=== PATIENT | female | born 1935 | race African-American/Black ===

== ENCOUNTER 2017-02-06 09:48 | Emergency (ER) | payer MEDICARE, MEDICAID ==
[~2017-02-06] VITALS: Ht 157.5 cm; Wt 73.0 kg
[~2017-02-06 09:48] MED LIST: ASPI-1159 PO; ATEN50TA PO; CLOP75TA33 PO; LISI10TA5 PO; MONT10TA24 PO
[2017-02-06 11:31] LABS: HEMATOCRIT. 37.6 % (36.0-48.0); HEMOGLOBIN. 12.6 g/dL (12.0-16.0); MEAN CORPUSCULAR HEMOGLOBIN 31.9 pg (28.0-32.0); MEAN CORPUSCULAR VOLUME 94.8 fL (81.0-99.0); MEAN PLATELET VOLUME 7.7 fl (7.4-10.4); PLATELET 167 x1000/uL (130-400); RED BLOOD CELL COUNT 3.97 mill/uL (4.2-5.4); RED CELL DISTRIBUTION WIDTH 13.8 % (11.6-14.6)
[2017-02-06 11:45] LABS: CARBON DIOXIDE 27 mEq/L (21-32); CHLORIDE 103 mEq/L (98-107); TROPONIN I 0.04 ng/mL (0.00-0.04)
[2017-02-06 12:07] LABS: PLATELET ESTIMATE NORMAL
[2017-02-06 13:00] VITALS: BP 162/98
== END 2017-02-06 13:08 | disposition home or self-care (01) ==
LOC: ER 10:17
DX: J44.0 Chronic obstructive pulmonary disease with (acute) lower respiratory infection (principal); J20.9 Acute bronchitis, unspecified; I10 Essential (primary) hypertension; E78.00 Pure hypercholesterolemia, unspecified; Z79.82 Long term (current) use of aspirin
CPT/HCPCS: 36415; 71010; 80053; 83880; 84484; 85025; 93005; 99285

== ENCOUNTER 2017-05-24 13:28 | Emergency (ER) | payer MEDICARE, MEDICAID ==
[~2017-05-24] VITALS: Ht 157.5 cm; Wt 70.0 kg
[2017-05-24 19:20] LABS: BASOPHILS % 1.3 % (0.0-2.0); EOSINOPHILS % 5.4 % (0.0-5.0); HEMATOCRIT. 40.9 % (36.0-48.0); HEMOGLOBIN. 13.7 g/dL (12.0-16.0); MEAN CORPUSCULAR VOLUME 95.5 fL (81.0-99.0); MEAN PLATELET VOLUME 6.9 fl (7.4-10.4); MONOCYTES % 11.3 % (2.0-8.0); PLATELET 191 x1000/uL (130-400); RED BLOOD CELL COUNT 4.28 mill/uL (4.2-5.4); RED CELL DISTRIBUTION WIDTH 14.4 % (11.6-14.6)
[2017-05-24 19:24] LABS: INR 1.1; PROTHROMBIN TIME 11.4 sec (9.4-11.6)
[2017-05-24 19:25] LABS: CHLORIDE 107 mEq/L (98-107)
[2017-05-24 19:32] LABS: CARBON DIOXIDE 28 mEq/L (21-32)
[2017-05-24 20:21] LABS: CLARITY URINE CLEAR (CLEAR); COLOR URINE YELLOW (YELLOW); KETONES URINE NEGATIVE (NEGATIVE); LEUKOCYTE ESTERASE URINE 2+ (NEGATIVE); NITRITE URINE NEGATIVE (NEGATIVE); OCCULT BLOOD URINE TRACE (NEGATIVE); PROTEIN URINE NEGATIVE (NEGATIVE); SPECIFIC GRAVITY URINE 1.015 (1.005-1.030); UROBILINOGEN URINE 0.2 E.U./dL (0.2-1.0)
[2017-05-24 20:40] VITALS: BP 178/92
[2017-05-24] MEDS ORDERED: AMOXICILLIN 500 MG CAPSULE PO ONE (20:45)
== END 2017-05-24 21:15 | disposition home or self-care (01) ==
LOC: ER 14:48
DX: N30.00 Acute cystitis without hematuria (principal); M16.11 Unilateral primary osteoarthritis, right hip; I10 Essential (primary) hypertension; Z79.82 Long term (current) use of aspirin; Z79.899 Other long term (current) drug therapy
CPT/HCPCS: 36415; 73502; 80053; 81001; 85025; 85610; 99285

== ENCOUNTER 2019-03-08 11:05 | Inpatient (IN) | payer MEDICARE, MEDICAID ==
[~2019-03-08] VITALS: Ht 157.5 cm; Wt 72.3 kg
[~2019-03-08 11:05] MED LIST changes: -ASPI-1159 PO; +ASPI-1393 PO; +LISI-604 MT
[2019-03-08] MEDS ORDERED: SODIUM CHLORIDE 0.9% 500 ML IV ONE (11:58)
[2019-03-08] MEDS ORDERED: DILTIAZEM HCL 5MG/ML 5ML VIAL IV ONE ×2 (12:00→16:00)
[2019-03-08 12:21] LABS: BASOPHILS % 0.9 % (0.0-2.0); EOSINOPHILS % 2.7 % (0.0-5.0); HEMATOCRIT. 40.2 % (36.0-48.0); HEMOGLOBIN. 13.7 g/dL (12.0-16.0); LYMPHOCYTES % 21.4 % (20.0-50.0); MEAN CORPUSCULAR VOLUME 97.2 fL (81.0-99.0); MEAN PLATELET VOLUME 6.7 fl (7.4-10.4); MONOCYTES % 11.4 % (2.0-8.0); NEUTROPHILS % 63.6 % (40.0-76.0); PLATELET 231 x1000/uL (130-400); RED BLOOD CELL COUNT 4.14 mill/uL (4.2-5.4); RED CELL DISTRIBUTION WIDTH 14.5 % (11.6-14.6)
[2019-03-08 12:27] LABS: CHLORIDE 104 mEq/L (98-107)
[2019-03-08 12:29] LABS: PROTHROMBIN TIME 10.7 sec (9.6-11.0)
[2019-03-08 13:17] LABS: CLARITY URINE CLEAR (CLEAR); COLOR URINE YELLOW (YELLOW); KETONES URINE NEGATIVE (NEGATIVE); LEUKOCYTE ESTERASE URINE TRACE (NEGATIVE); NITRITE URINE NEGATIVE (NEGATIVE); OCCULT BLOOD URINE NEGATIVE (NEGATIVE); PH URINE 6.5 (4.5-8.0); PROTEIN URINE NEGATIVE (NEGATIVE); SPECIFIC GRAVITY URINE 1.007 (1.005-1.030); UROBILINOGEN URINE 0.2 E.U./dL (0.2-1.0)
[2019-03-08] MEDS ORDERED: DILTIAZEM HCL 125 MG in DEXT 5% WATER 100 ML IV ONE (16:00)
[2019-03-08] MEDS ORDERED: DILTIAZEM HCL 125 MG in DEXT 5% WATER 100 ML IV NR (17:00)
[2019-03-08] MEDS ORDERED: IPRATROPIUM/ALBUTEROL 0.5-3(2.5)MG/3ML NEB HHN PRN (18:30)
[2019-03-08] MEDS ORDERED: ONDANSETRON HCL 4MG/2ML INJ IV PRN (18:30)
[2019-03-08 20:12] LABS: T4 FREE 1.06 ng/dL (0.76-1.46)
[2019-03-08 20:25] VITALS: BP 134/97
[2019-03-08 20:30] VITALS: BP 134/97
[2019-03-08 21:25] VITALS: BP 154/93
[2019-03-08] MEDS: ENOXAPARIN 60MG/0.6ML SYR SUBCUT SCH (21:47)
[2019-03-08] MEDS: FLUTICASONE PROPIONATE 50MCG/SPRAY BOTTLE BOTHNSTRLS SCH (22:22)
[2019-03-08 22:25] VITALS: BP 157/94
[2019-03-09] VITALS (12 sets, daily range): BP systolic 136–165; BP diastolic 73–93
[2019-03-09 00:07] LABS: CREATINE KINASE MB FRACTION 1.3 ng/mL (0.5-3.6)
[2019-03-09] MEDS: DILTIAZEM HCL 30MG TABLET PO SCH ×4 (00:50→17:38)
[2019-03-09 06:18] LABS: CLARITY URINE CLEAR (CLEAR); COLOR URINE YELLOW (YELLOW); KETONES URINE NEGATIVE (NEGATIVE); LEUKOCYTE ESTERASE URINE TRACE (NEGATIVE); NITRITE URINE NEGATIVE (NEGATIVE); OCCULT BLOOD URINE NEGATIVE (NEGATIVE); PROTEIN URINE NEGATIVE (NEGATIVE); SPECIFIC GRAVITY URINE 1.008 (1.005-1.030); UROBILINOGEN URINE 0.2 E.U./dL (0.2-1.0)
[2019-03-09 06:32] LABS: *AMPHETAMINES SCREEN URINE NEGATIVE (NEGATIVE); *BARBITURATES SCREEN URINE NEGATIVE (NEGATIVE); *BENZODIAZEPINES SCREEN URINE NEGATIVE (NEGATIVE); *COCAINE SCREEN URINE NEGATIVE (NEGATIVE)
[2019-03-09 06:33] LABS: CANNABINOID URINE SCREEN NEGATIVE (NEGATIVE); METHADONE URINE SCREEN NEGATIVE (NEGATIVE); OPIATES URINE SCREEN NEGATIVE (NEGATIVE); PHENCYCLIDINE URINE SCREEN NEGATIVE (NEGATIVE)
[2019-03-09 07:26] LABS: BASOPHILS % 1.1 % (0.0-2.0); EOSINOPHILS % 5.2 % (0.0-5.0); HEMATOCRIT. 36.6 % (36.0-48.0); HEMOGLOBIN. 12.7 g/dL (12.0-16.0); LYMPHOCYTES % 28.3 % (20.0-50.0); MEAN CORPUSCULAR HEMOGLOBIN 33.4 pg (28.0-32.0); MEAN CORPUSCULAR VOLUME 96.6 fL (81.0-99.0); MONOCYTES % 13.6 % (2.0-8.0); NEUTROPHILS % 51.8 % (40.0-76.0); PLATELET 210 x1000/uL (130-400); RED BLOOD CELL COUNT 3.79 mill/uL (4.2-5.4); RED CELL DISTRIBUTION WIDTH 14.6 % (11.6-14.6)
[2019-03-09 07:36] LABS: CHLORIDE 104 mEq/L (98-107)
[2019-03-09 07:48] LABS: CREATINE KINASE MB FRACTION < 1.0 ng/mL (0.5-3.6)
[2019-03-09] MEDS: DOCUSATE SODIUM 250MG CAPSULE PO SCH (08:49)
[2019-03-09] MEDS: FAMOTIDINE 20MG TABLET PO SCH (08:49)
[2019-03-09] MEDS: ENOXAPARIN 60MG/0.6ML SYR SUBCUT SCH ×2 (08:50→21:23)
[2019-03-09] MEDS: FLUTICASONE PROPIONATE 50MCG/SPRAY BOTTLE BOTHNSTRLS SCH ×2 (08:52→21:23)
[2019-03-09 09:27] LABS: BG BASE EXCESS -6.1 mmol/L (-2.0-2.0); BG CARBOXYHEMOGLOBIN 0.3 % (0.5-1.5); BG FRACTION INSPIRED OXYGEN 21; BG HCO3 ACT 18.5 mmol/L (22.0-26.0); BG METHEMOGLOBIN 0.2 % (0.0-1.5); BG OXYHEMOGLOBIN 95.5 % (94.0-97.0); BG PCO2 33.2 mmHg (35.0-45.0); BG PH 7.363 (7.350-7.450); BG PO2 87.1 mmHg (75.0-100.0); BG SAMPLE SITE RIGHT RADIAL; BG TOTAL HEMOGLOBIN 10.4 g/dL (12.0-18.0); BG VENT MODE ROOM AIR
[2019-03-09] MEDS ORDERED: GUAIFENESIN 200MG/10ML SUGAR FREE UDC PO PRN (10:00)
[2019-03-09] MEDS ORDERED: BENZONATATE 100MG CAPSULE PO PRN (10:00)
[2019-03-09] MEDS ORDERED: HYDRALAZINE HCL 25MG TABLET PO NR (16:00)
[2019-03-09] MEDS: MULTAQ 400 MG PO SCH (21:24)
[2019-03-10] VITALS (19 sets, daily range): BP systolic 119–171; BP diastolic 69–110
[2019-03-10 00:31] LABS: *COCAINE SCREEN URINE NEGATIVE (NEGATIVE); CANNABINOID URINE SCREEN NEGATIVE (NEGATIVE); METHADONE URINE SCREEN NEGATIVE (NEGATIVE); OPIATES URINE SCREEN NEGATIVE (NEGATIVE); PHENCYCLIDINE URINE SCREEN NEGATIVE (NEGATIVE)
[2019-03-10 00:32] LABS: *AMPHETAMINES SCREEN URINE NEGATIVE (NEGATIVE); *BARBITURATES SCREEN URINE NEGATIVE (NEGATIVE); *BENZODIAZEPINES SCREEN URINE NEGATIVE (NEGATIVE)
[2019-03-10] MEDS: DILTIAZEM HCL 30MG TABLET PO SCH ×5 (00:39→23:01)
[2019-03-10] MEDS: ACETAMINOPHEN 325MG TABLET PO PRN ×2 (02:53→09:13)
[2019-03-10] MEDS: DOCUSATE SODIUM 250MG CAPSULE PO SCH (09:06)
[2019-03-10] MEDS: FLUTICASONE PROPIONATE 50MCG/SPRAY BOTTLE BOTHNSTRLS SCH ×2 (09:06→21:55)
[2019-03-10] MEDS: MULTAQ 400 MG PO SCH ×2 (09:07→17:56)
[2019-03-10] MEDS: FAMOTIDINE 20MG TABLET PO SCH (09:07)
[2019-03-10] MEDS: APIXABAN 2.5 MG TABLET PO SCH ×2 (09:07→21:55)
[2019-03-10 10:13] LABS: BASOPHILS % 0.6 % (0.0-2.0); EOSINOPHILS % 0.8 % (0.0-5.0); HEMATOCRIT. 38.8 % (36.0-48.0); HEMOGLOBIN. 13.1 g/dL (12.0-16.0); LYMPHOCYTES % 14.6 % (20.0-50.0); MEAN CORPUSCULAR HEMOGLOBIN 32.8 pg (28.0-32.0); MEAN CORPUSCULAR VOLUME 97.4 fL (81.0-99.0); MONOCYTES % 13.1 % (2.0-8.0); NEUTROPHILS % 70.9 % (40.0-76.0); PLATELET 231 x1000/uL (130-400); RED BLOOD CELL COUNT 3.98 mill/uL (4.2-5.4); RED CELL DISTRIBUTION WIDTH 14.2 % (11.6-14.6)
[2019-03-10 10:28] LABS: CHLORIDE 100 mEq/L (98-107)
[2019-03-10] MEDS: HYDROCODONE/ACETAMINOPHEN 5/325MG TABLET PO PRN ×2 (13:13→20:05)
[2019-03-10] MEDS ORDERED: POTASSIUM CHLORIDE 20MEQ TABLET SR PO NR (16:15)
[2019-03-10] MEDS ORDERED: CLONIDINE 0.1MG TABLET PO PRN (20:45)
[2019-03-11] VITALS (12 sets, daily range): BP systolic 122–167; BP diastolic 65–89
[2019-03-11] MEDS: DILTIAZEM HCL 30MG TABLET PO SCH ×3 (06:08→19:02)
[2019-03-11 06:18] LABS: HEMATOCRIT. 36.8 % (36.0-48.0); HEMOGLOBIN. 12.5 g/dL (12.0-16.0); MEAN CORPUSCULAR VOLUME 96.9 fL (81.0-99.0); MEAN PLATELET VOLUME 7.5 fl (7.4-10.4); PLATELET 228 x1000/uL (130-400); RED CELL DISTRIBUTION WIDTH 13.7 % (11.6-14.6)
[2019-03-11 06:58] LABS: CHLORIDE 98 mEq/L (98-107)
[2019-03-11] MEDS: DOCUSATE SODIUM 250MG CAPSULE PO SCH (08:31)
[2019-03-11] MEDS: MULTAQ 400 MG PO SCH ×2 (08:31→17:34)
[2019-03-11] MEDS: FAMOTIDINE 20MG TABLET PO SCH (08:31)
[2019-03-11] MEDS: FLUTICASONE PROPIONATE 50MCG/SPRAY BOTTLE BOTHNSTRLS SCH ×2 (08:31→20:56)
[2019-03-11] MEDS: MORPHINE SULFATE 2 MG/ML CPJ (NOT FOR IM USE) IV PRN ×2 (08:48→16:27)
[2019-03-11] MEDS: APIXABAN 2.5 MG TABLET PO SCH ×2 (09:00→20:56)
[2019-03-11 09:47] LABS: PLATELET ESTIMATE NORMAL
[2019-03-11] MEDS: CEFTRIAXONE 1,000 MG in DEXTROSE 5% WATER 50 ML IV SCH (10:14)
[2019-03-11] MEDS ORDERED: VANCOMYCIN 1500MG in DEXTROSE 5% WATER 250ML IV SCH (11:00)
[2019-03-12] VITALS (10 sets, daily range): BP systolic 118–150; BP diastolic 59–79
[2019-03-12] MEDS: DILTIAZEM HCL 30MG TABLET PO SCH ×4 (00:29→18:04)
[2019-03-12] MEDS: MORPHINE SULFATE 2 MG/ML CPJ (NOT FOR IM USE) IV PRN (05:17)
[2019-03-12] MEDS: MULTAQ 400 MG PO SCH ×2 (07:20→18:04)
[2019-03-12] MEDS ORDERED: HYDROMORPHONE HCL/PF 2MG/ML CPJ IV PRN (09:15)
[2019-03-12] MEDS ORDERED: HYDROMORPHONE HCL/PF 2MG/ML CPJ IV SCH (09:15)
[2019-03-12] MEDS: LIDOCAINE 5% PATCH TOP SCH (10:00)
[2019-03-12] MEDS: VANCOMYCIN 1 G PREMIX 200 ML IV SCH (10:03)
[2019-03-12] MEDS: CEFTRIAXONE 1,000 MG in DEXTROSE 5% WATER 50 ML IV SCH (10:03)
[2019-03-12] MEDS: APIXABAN 2.5 MG TABLET PO SCH ×2 (10:03→21:43)
[2019-03-12] MEDS: DOCUSATE SODIUM 250MG CAPSULE PO SCH (10:03)
[2019-03-12] MEDS: FAMOTIDINE 20MG TABLET PO SCH (10:03)
[2019-03-12 10:33] LABS: BASOPHILS % 0.2 % (0.0-2.0); EOSINOPHILS % 0.6 % (0.0-5.0); HEMATOCRIT. 35.2 % (36.0-48.0); HEMOGLOBIN. 12.1 g/dL (12.0-16.0); LYMPHOCYTES % 7.7 % (20.0-50.0); MEAN CORPUSCULAR HEMOGLOBIN 33.4 pg (28.0-32.0); MEAN CORPUSCULAR VOLUME 97.4 fL (81.0-99.0); MEAN PLATELET VOLUME 7.4 fl (7.4-10.4); MONOCYTES % 10.9 % (2.0-8.0); NEUTROPHILS % 80.6 % (40.0-76.0); PLATELET 172 x1000/uL (130-400); RED BLOOD CELL COUNT 3.62 mill/uL (4.2-5.4); RED CELL DISTRIBUTION WIDTH 14.3 % (11.6-14.6)
[2019-03-12 10:43] LABS: CHLORIDE 96 mEq/L (98-107)
[2019-03-12] MEDS: HYDROCODONE/ACETAMINOPHEN 5/325MG TABLET PO PRN (21:54)
[2019-03-13] VITALS (10 sets, daily range): BP systolic 99–132; BP diastolic 55–70
[2019-03-13] MEDS: DILTIAZEM HCL 30MG TABLET PO SCH ×4 (00:33→18:59)
[2019-03-13] MEDS ORDERED: ETHYL CHLORIDE CAN TOP NR (07:00)
[2019-03-13] MEDS: MULTAQ 400 MG PO SCH ×2 (07:20→17:55)
[2019-03-13 08:57] LABS: HEMATOCRIT. 34.6 % (36.0-48.0); HEMOGLOBIN. 11.9 g/dL (12.0-16.0); MEAN CORPUSCULAR HEMOGLOBIN 33.3 pg (28.0-32.0); MEAN CORPUSCULAR VOLUME 96.8 fL (81.0-99.0); MEAN PLATELET VOLUME 7.8 fl (7.4-10.4); PLATELET 183 x1000/uL (130-400); RED BLOOD CELL COUNT 3.58 mill/uL (4.2-5.4); RED CELL DISTRIBUTION WIDTH 13.8 % (11.6-14.6)
[2019-03-13] MEDS: LIDOCAINE 5% PATCH TOP SCH (09:00)
[2019-03-13] MEDS ORDERED: LIDOCAINE HCL/EPINEPHRINE 1%-EPI 1:100,000 20 ML VIAL INFIL NR (09:00)
[2019-03-13 09:03] LABS: CHLORIDE 96 mEq/L (98-107)
[2019-03-13] MEDS ORDERED: TRAMADOL HCL/ACETAMINOPHEN 37.5/325MG TABLET PO SCH (09:15)
[2019-03-13] MEDS: DOCUSATE SODIUM 250MG CAPSULE PO SCH (09:32)
[2019-03-13] MEDS: FAMOTIDINE 20MG TABLET PO SCH (09:32)
[2019-03-13] MEDS: APIXABAN 2.5 MG TABLET PO SCH ×2 (09:32→21:40)
[2019-03-13] MEDS: CEFTRIAXONE 1,000 MG in DEXTROSE 5% WATER 50 ML IV SCH (09:36)
[2019-03-13] MEDS: VANCOMYCIN 1 G PREMIX 200 ML IV SCH (09:36)
[2019-03-13 11:32] LABS: PLATELET ESTIMATE NORMAL
[2019-03-13] MEDS ORDERED: SODIUM BICARBONATE 4% (2.4MEQ) 5ML VIAL IV ONE (13:14)
[2019-03-13] MEDS ORDERED: LIDOCAINE HCL 1% 20ML VIAL (Pyxis) INJ ONE (13:14)
[2019-03-13] MEDS: HYDROCODONE/ACETAMINOPHEN 5/325MG TABLET PO PRN ×2 (15:06→21:43)
[2019-03-13] MEDS ORDERED: ASPI-1393 PO (15:27)
[2019-03-13] MEDS ORDERED: ATEN50TA PO (15:27)
[2019-03-13] MEDS ORDERED: NIFE60TA64 PO (15:27)
[2019-03-13] MEDS ORDERED: MONT10TA21 PO (15:27)
[2019-03-13] MEDS ORDERED: FLUT9.9S BOTHNSTRLS (15:27)
[2019-03-13] MEDS ORDERED: CLOP75TA4 PO (15:27)
[2019-03-13] MEDS ORDERED: LISI-604 PO (15:32)
[2019-03-13] MEDS: TRAMADOL HCL/ACETAMINOPHEN 37.5/325MG TABLET PO SCH (18:59)
[2019-03-14] VITALS (10 sets, daily range): BP systolic 94–125; BP diastolic 56–84
[2019-03-14] MEDS: DILTIAZEM HCL 30MG TABLET PO SCH ×3 (00:05→12:00)
[2019-03-14] MEDS: LIDOCAINE 5% PATCH TOP SCH (08:14)
[2019-03-14] MEDS: MULTAQ 400 MG PO SCH (08:18)
[2019-03-14] MEDS: DOCUSATE SODIUM 250MG CAPSULE PO SCH (08:18)
[2019-03-14] MEDS: APIXABAN 2.5 MG TABLET PO SCH (08:18)
[2019-03-14] MEDS: TRAMADOL HCL/ACETAMINOPHEN 37.5/325MG TABLET PO SCH (08:18)
[2019-03-14] MEDS: FAMOTIDINE 20MG TABLET PO SCH (08:18)
[2019-03-14] MEDS ORDERED: APIX2.5T MT (09:07)
[2019-03-14] MEDS ORDERED: DOCU250C69 MT (09:07)
[2019-03-14] MEDS ORDERED: DILT30TA38 MT (09:07)
[2019-03-14] MEDS ORDERED: DRON400T MT (09:07)
[2019-03-14] MEDS ORDERED: TRAM-529 MT (09:07)
[2019-03-14] MEDS ORDERED: LIDO700A30 TP (09:07)
[2019-03-14] MEDS: VANCOMYCIN 1 G PREMIX 200 ML IV SCH (09:23)
[2019-03-14] MEDS ORDERED: CEFTRIAXONE 1 G PREMIX 50 ML IV SCH (10:00)
[2019-03-14 11:36] LABS: BASOPHILS % 0.2 % (0.0-2.0); EOSINOPHILS % 2.6 % (0.0-5.0); HEMATOCRIT. 31.9 % (36.0-48.0); HEMOGLOBIN. 10.9 g/dL (12.0-16.0); LYMPHOCYTES % 10.5 % (20.0-50.0); MEAN CORPUSCULAR HEMOGLOBIN 33.1 pg (28.0-32.0); MEAN CORPUSCULAR VOLUME 96.9 fL (81.0-99.0); MEAN PLATELET VOLUME 8.1 fl (7.4-10.4); MONOCYTES % 13.4 % (2.0-8.0); NEUTROPHILS % 73.3 % (40.0-76.0); PLATELET 218 x1000/uL (130-400); RED CELL DISTRIBUTION WIDTH 13.9 % (11.6-14.6)
[2019-03-14 11:39] LABS: CHLORIDE 93 mEq/L (98-107)
[2019-03-14] MEDS ORDERED: DEMECLOCYCLINE HCL 300MG TABLET PO SCH (17:00)
== END 2019-03-14 17:34 | disposition home health service (06) | DRG 554 ==
LOC: ER 11:05 → EDBEDREQ 14:30 → EDBEDREQSVC 14:30 → ENRESERV 19:22 → 3WST 20:15
PROVIDERS: ADMIT Internal Medicine Geriatric Medicine; ATTEND Internal Medicine Geriatric Medicine
PROC: 0S9D3ZZ Drainage of Left Knee Joint, Percutaneous Approach (ICD-10-PCS; principal; 2019-03-11)
PROC: 0S9D3ZZ Drainage of Left Knee Joint, Percutaneous Approach (ICD-10-PCS; 2019-03-13)
DX: M25.062 Hemarthrosis, left knee (principal); E22.2 Syndrome of inappropriate secretion of antidiuretic hormone; N39.0 Urinary tract infection, site not specified; M17.12 Unilateral primary osteoarthritis, left knee; I48.0 Paroxysmal atrial fibrillation; J40 Bronchitis, not specified as acute or chronic; S80.02XA Contusion of left knee, initial encounter; R09.82 Postnasal drip; J30.9 Allergic rhinitis, unspecified; I11.0 Hypertensive heart disease with heart failure; Z96.652 Presence of left artificial knee joint; K57.90 Diverticulosis of intestine, part unspecified, without perforation or abscess without bleeding; M48.061 Spinal stenosis, lumbar region without neurogenic claudication; Z60.2 Problems related to living alone; I49.9 Cardiac arrhythmia, unspecified; R00.1 Bradycardia, unspecified; M25.462 Effusion, left knee; Z96.1 Presence of intraocular lens; Z79.01 Long term (current) use of anticoagulants; Z98.49 Cataract extraction status, unspecified eye; Z79.02 Long term (current) use of antithrombotics/antiplatelets; Z79.899 Other long term (current) drug therapy; Z86.73 Personal history of transient ischemic attack (TIA), and cerebral infarction without residual deficits; Z90.710 Acquired absence of both cervix and uterus; Z93.3 Colostomy status; Z79.82 Long term (current) use of aspirin; Z90.49 Acquired absence of other specified parts of digestive tract; X58.XXXA Exposure to other specified factors, initial encounter; Y93.89 Activity, other specified; Y92.89 Other specified places as the place of occurrence of the external cause; Y99.8 Other external cause status
CPT/HCPCS: 20610; 20611; 36415; 36600; 71045; 73560; 73700; 80048; 80061; 80202; 80305; 81003; 82375; 82533; 82553; 82805; 83605; 83735; 83880; 83930; 84439; 84443; 84484; 84550; 85651; 88108; 93005; 93306; 93970; 96374; 97162; 97164; 97530; 97535; 99291; J0696; J1170; J1650; J2270; J3370; J3490; J7040; J7060; L1830